=== PATIENT | male | born 1960 | race Caucasian/White ===

== ENCOUNTER 2017-05-06 06:35 | Emergency (ER) | payer OTHER ==
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
[2017-05-06] MEDS ORDERED: DIPHTH/TETANUS/ACEL. PERTUSSIS IM ONLY ONE (07:15)
--- NOTE | 2017-05-06 07:44 | RADIOLOGY IMAGING REPORT ---
[place] [facility] [place] NAME: Abraham Aguilera : 1960 MR: [id number] V: [id number] EXAM DATE: ORDERING PHYSICIAN: CHICO RIOS TECHNOLOGIST: Location: Patient: Abraham Aguilera : 1960 Visit/Account:[id number] Date of Sevice: 05/06/[address]: Indication: Injury. Technique: Contiguous axial sections were obtained from the base to the vertex without contrast enhan cement. One of the following dose optimization techniques was utilized in the performance of this exam: Autom ated exposure control; adjustment of the mA and/or kV according to the patient's size; or use of an i terative reconstruction technique. Specific details can be referenced in the facility's radiology CT exam operational policy. Comparison: None. Findings: There is no evidence of intra-axial or extra-axial hemorrhage. No focal areas of decreased or increased attenuation are identified. There is no evidence of mass, edema, or shift of the midline structures. The size, shape, and configuration of the ventricular system are normal. The skeletal st ructures are intact and unremarkable. There is no evidence of fracture or other acute deformity. Ther e is minimal mucosal thickening in the maxillary sinuses. Impression: Unremarkable unenhanced head CT. Report Dictated By: Hari Ny MD at 05/06/2017 7:38 AM Report E-Signed By: Hari Ny MD at 05/06/2017 7:41 AM WSN:[id number]
[2017-05-06 08:13] VITALS: BP 133/90
--- NOTE | 2017-05-06 08:19 | RADIOLOGY IMAGING REPORT ---
[place] [facility] [place] Abraham Aguilera : 1960 MR: [id number] V: [id number] EXAM DATE: ORDERING PHYSICIAN: SILVER RIOS TECHNOLOGIST: [place] [facility] [place] Abraham Aguil[place] : 1960 Visit/Account:[id number] Date of Sevice: 05/06/2017 CERVICAL SPINE 2 OR 3 VIEW HISTORY: Trauma COMPARISON: None. FINDINGS: Prevertebral soft tissue is within normal limits. Lateral neutral positioning demonstrates anatomic alignment. Mild disc narrowing is seen in the mid and lower cervical spine. Facets align appropriat eben. No fracture or destructive osseous process. Lung apices are clear. Odontoid view is symmetric . IMPRESSION: 1. No evidence of acute osseous finding involving the cervical spine. Mild degenerative changes Report Dictated By: Silver Gorman MD at 05/06/2017 8:14 AM Report E-Signed By: Silver Gorman MD at 05/06/2017 8:15 AM WSN:[email or web address]
== END 2017-05-06 09:05 | disposition home or self-care (01) ==
LOC: ER 06:41
DX: S80.12XA Contusion of left lower leg, initial encounter (principal); S80.11XA Contusion of right lower leg, initial encounter; V69.50XA Passenger in heavy transport vehicle injured in collision with unspecified motor vehicles in traffic accident, initial encounter
CPT/HCPCS: 70450; 72040; 90471; 90715; 99283

== ENCOUNTER → 2017-05-06 | Outpatient (CLI) | payer OTHER | LOC: AMB 05:53 | PROVIDERS: ATTEND Nurse Practitioner | DX: R51 Headache (principal); S81.812A Laceration without foreign body, left lower leg, initial encounter; S81.811A Laceration without foreign body, right lower leg, initial encounter; I95.9 Hypotension, unspecified; V69.9XXA Occupant (driver) (passenger) of heavy transport vehicle injured in unspecified traffic accident, initial encounter; Y92.411 Interstate highway as the place of occurrence of the external cause | CPT/HCPCS: A0425; A0429 ==